=== PATIENT | female | born 1975 ===

== ENCOUNTER 2022-03-23 02:20 | Emergency (ER) | payer BC ==
--- OUTSIDE RECORDS SUMMARY | 2022-03-23 02:23 | XMS REPORT | Continuity of Care Document ---
:1975 Author Organization [facility] t Address Pending sale to [facility] [place] [address] Care Team Providers Name Role Phone Unknown, Physician Primary Care Physician Unavailable BURT HERNANDEZ Attending Clinician Unavailable BURT HERNANDEZ M.D. Attending Clinician Unavailable Payers Payer Name Policy Type Policy Number Effective Date Expiration Date S delfin [id number] PPO AND [id number] 2013 00:00:00 OUT OF STATE Problems Condition Condition Condition Status Onset Resolution Last Treating Co mments Source Name Details Category Date Date Treatment Clinician Date Chronic Chronic Disease Active [facility] fatigue fatigue 6-02 Health 00:00: 00 Iron Iron Disease Active [facility] deficiency deficiency 6-02 He alth anemia anemia 00:00: 00 Postoperat Postoperat Disease Active U T alaina alaina 6-02 Health hypothyroi hypothyroi 00:00: dism dism 00 Vitamin D Vitamin D Disease Active UT deficiency deficiency 6-02 He alth 00:00: 00 Abnormal Abnormal Disease Active UT thyroid thyroid 3-27 Health function function 00:00: test test 00 History of History of Problem Resolve UT thyroid thyroid d Physici disease disease ans Abnormal Abnormal Problem Active UT thyroid thyroid Physici function function ans test test Chronic Chronic Problem Active UT fatigue fatigue Physici ans Iron Iron Problem Active UT deficiency deficiency Ph ysici anemia anemia ans Postoperat Postoperat Problem Active U T alaina alaina Physici hypothyroi hypothyroi an s dism dism Vitamin D Vitamin D Problem Active UT deficiency deficiency Ph ysici ans Allergies, Adverse Reactions, Alerts Allergy Allergy Status Severity Reaction(s) Onset Inactive Treating Comm ents Source Name Type Date Date Clinician Cephalex Allergy Active [facility] in to 1-28 Health substanc 00:00: e 00 Keflex Allergy Active [facility] to drug Physici (finding ans ) Family History Family Member Diagnosis Comments Start Date Stop Date Source Mother Family history of [facility] hypertension Social History Social Habit Start Date Stop Date Quantity Comments Source Exposure to Not sure [facility] SARS-CoV-2 (event) History SDOH [facility] Alcohol Frequency History SDOH [facility] Alcohol Binge Tobacco use and 2021-08-05 2021-08-05 Smokeless tobacco [facility] exposure 00:00:00 00:00:00 non-user Alcohol intake 2021-08-05 2021-08-05 Current drinker of [facility] 00:00:00 00:00:00 alcohol (finding) Alcohol Comment 2021-08-05 2021-08-05 social [facility] 00:00:00 00:00:00 Sex Assigned At [birth year] [facility] 00:00:00 00:00:00 Smoking Status Start Date Stop Date Source Tobacco smoking consumption unknown [facility] Never smoked tobacco [facility] Medications Ordered Filled Start Stop Current Ordering Indication Dosage Frequency Signature Comments Components Source Medication Medication Date Date Medication? Clinician (SIG) Name Name hydroCHLORO [facility] thiazide 08-05 Health (HYDRODiuri 09:59: 00:00 l) 12.5 MG 40 :00 tablet norethindro [facility] ne-ethinyl 08-05 Health estradiol 09:59: 00:00 ( 37 :00 07/24) 1-20 MG-MCG tablet estradiol Yes 1{patch Place 1 UT (Vivelle-DO 08-05 } patch on Heal th T) 0.05 09:46: the skin 1 MG/24HR 25 (one) time per week. Synthroid 2022- No [id number] 125ug Q2D Take 1 UT 125 MCG 08-05 tablet Health tablet 00:00: 05:59 (125 mcg 00 :00 total) by mouth every other day. EVERY OTHER MORNING to be alternated with Synthroid 137 mcg. Synthroid 2022- No [id number] 137ug Q2D Take 137 UT 137 MCG 08-05 mcg by Health tablet 00:00: 05:59 mouth 00 :00 every other day. EVERY OTHER MORNING to be alternated with Synthroid 125 mcg. hydroCHLORO Yes UT thiazide 08-01 Health (HYDRODiuri 09:06: l) 12.5 MG 43 tablet norethindro Yes UT ne-ethinyl 08-01 Health estradiol 09:06: (Gildess FE 43 07/24) 1-20 MG-MCG tablet Synthroid 2020-07 Yes [id number] 125ug Q2D Take 1 U T 125 MCG 1-12 tablet Health tablet 00:00: (125 mcg 00 total) by mouth every other day. EVERY OTHER MORNING Synthroid 2020-07 Yes [id number] 125ug Q2D Take 1 U T 125 MCG 1-12 tablet Health tablet 00:00: (125 mcg 00 total) by mouth every other day. EVERY OTHER MORNING Synthroid 2020-07 Yes [id number] 125ug Q2D Take 1 U T 125 MCG 1-12 tablet Health tablet 00:00: (125 mcg 00 total) by mouth every other day. EVERY OTHER MORNING Synthroid 2020-07- No [id number] 125ug Q2D Take 1 UT 125 MCG 12 08-05 tablet Health tablet 00:00: 00:00 (125 mcg 00 :00 total) by mouth every other day. EVERY OTHER MORNING zolpidem 2020-07 Yes UT (Ambien) 10 1-02 Health MG tablet 00:00: 00 zolpidem 2020-07 Yes UT (Ambien) 10 1-02 Health MG tablet 00:00: 00 Synthroid 2020- No [id number] TAKE 1 U T 125 MCG 02-10-12 TABLET BY Health tablet 00:00: 00:00 MOUTH 00 :00 EVERY OTHER MORNING Synthroid Synthroid Yes BURT TAKE 1 UT 137 MCG 137 MCG 4-07 [facility] TABLET BY P hysici Oral Tablet Oral Tablet 00:00: M.D. MOUTH 5 ans 00 DAYS A WEEK Synthroid Synthroid 2015-07 Yes BURT TAKE ONE UT 125 MCG 125 MCG 0-11 [facility] (1) Physic i Oral Tablet Oral Tablet 00:00: M.D. TABLET(S) ans 00 BY MOUTH every other DAY IN THE MORNING. hydroCHLORO hydroCHLORO Yes P.A. U T thiazide thiazide Physici 12.5 MG 12.5 MG ans Oral Tablet Oral Tablet Gildes FE Giljadas FE Yes P.A. UT 07/24 Physi ci MG-MCG TABS MG-MCG TABS a ns Vital Signs Vital Name Observation Time Observation Value Comments Source Systolic blood 2021-08-05 15:46:00 138 mm[Hg] [facility] pressure Diastolic blood 2021-08-05 15:46:00 86 mm[Hg] [facility] pressure Heart rate 2021-08-05 15:46:00 67 /min [facility] Body temperature 2021-08-05 15:46:00 36.5 Robyn [facility] Body weight 2021-08-05 15:46:00 70.58 kg [facility] BMI 2021-08-05 15:46:00 25.89 kg/m2 [facility] BP Systolic 2018-08-09 15:01:00 139 mm[Hg] Location: LUE; [facility] Position: Sitting BP Diastolic 2018-08-09 15:01:00 89 mm[Hg] Location: MAGOE; [facility] Position: Sitting Height 2018-08-09 15:01:00 65 [in_us] [facility] Weight 2018-08-09 15:01:00 151.25 [lb_av] [facility] Body Mass Index 2018-08-09 15:01:00 25.17 kg/m2 [facility] Calculated Temperature 2018-08-09 15:01:00 98 [degF] Method: Oral [facility] Heart Rate 2018-08-09 15:01:00 77 /min Location: L [facility] Brachial Artery; BP Systolic 2017-11-03 16:05:00 135 mm[Hg] Location: MAGOE; [facility] Position: Sitting BP Diastolic 2017-11-03 16:05:00 82 mm[Hg] Location: LUE; [facility] Position: Sitting Height 2017-11-03 16:05:00 65 [in_us] [facility] Weight 2017-11-03 16:05:00 139.375 [lb_av] [facility] Body Mass Index 2017-11-03 16:05:00 23.19 kg/m2 [facility] Calculated Temperature 2017-11-03 16:05:00 98 [degF] Method: Oral [facility] Heart Rate 2017-11-03 16:05:00 67 /min Location: L [facility] Brachial Artery; Procedures Procedure Date / Time Performed Performing Clinician Sour e [Q] IRON, TIBC AND FERRITIN 2018-08-09 00:00:00 [facility] PANEL [QLH] CBC (INCLUDES 2018-08-09 00:00:00 [facility] DIFF/PLT) [QLH] T3, TOTAL 2018-08-09 00:00:00 [facility] s [QLH] T4, FREE 2018-08-09 00:00:00 [facility] s [QLH] TSH, 3RD GENERATION 2018-08-09 00:00:00 [facility] [QLH] VITAMIN D, 25-HYDROXY, 2018-08-09 00:00:00 [facility] LC/MS/MS [QLH] T3, TOTAL 2018-02-23 00:00:00 [facility] s [QLH] T4, FREE 2018-02-23 00:00:00 [facility] s [QLH] TSH, 3RD GENERATION 2018-02-23 00:00:00 [facility] [Q] IRON, TIBC AND FERRITIN 2018-02-23 00:00:00 [facility] PANEL [QLH] CBC (INCLUDES 2018-02-23 00:00:00 [facility] DIFF/PLT) [Q] IRON, TIBC AND FERRITIN 2017-11-03 00:00:00 [facility] PANEL History of Hysterectomy [facility] History of Thyroid Surgery [facility] History of Appendectomy [facility] History of Cholecystotomy [facility] History of Ovarian Surgery [facility] History of Tonsillectomy [facility] History of Breast Surgery [facility] Reduction Procedure Elective History of Liposuction [facility] History of Breast Surgery [facility] Enlargement Procedure Plan of Care Planned Activity Planned Date Details Comments Source Diagnostic Test 2019-02-06 00:00:00 [Q] IRON, TIBC AND [facility] Pending FERRITIN PANEL [code = [Q] IRON, TIBC AND FERRITIN PANEL] Diagnostic Test 2019-02-06 00:00:00 [QLH] CBC (INCLUDES [facility] Pending DIFF/PLT) [code = [QLH] CBC (INCLUDES DIFF/PLT)] Diagnostic Test 2019-02-06 00:00:00 [QLH] T3, TOTAL [code [facility] Pending = [QLH] T3, TOTAL] Diagnostic Test 2019-02-06 00:00:00 [QLH] T4, FREE [code [facility] Pending = [QLH] T4, FREE] Diagnostic Test 2019-02-06 00:00:00 [QLH] TSH, 3RD [facility] Pending GENERATION [code = [QLH] TSH, 3RD GENERATION] Diagnostic Test 2019-02-06 00:00:00 [QLH] VITAMIN D, U [facility] Pending 25-HYDROXY, LC/MS/MS [code = [QLH] VITAMIN D, 25-HYDROXY, LC/MS/MS] Diagnostic Test 2019-02-06 00:00:00 [Q] IRON, TIBC AND [facility] Pending FERRITIN PANEL [code = [Q] IRON, TIBC AND FERRITIN PANEL] Diagnostic Test 2019-02-06 00:00:00 [QLH] CBC (INCLUDES [facility] Pending DIFF/PLT) [code = [QLH] CBC (INCLUDES DIFF/PLT)] Diagnostic Test 2019-02-06 00:00:00 [QLH] T3, TOTAL [code [facility] Pending = [QLH] T3, TOTAL] Diagnostic Test 2019-02-06 00:00:00 [QLH] T4, FREE [code [facility] Pending = [QLH] T4, FREE] Diagnostic Test 2019-02-06 00:00:00 [QLH] TSH, 3RD [facility] Pending GENERATION [code = [QLH] TSH, 3RD GENERATION] Diagnostic Test 2019-02-06 00:00:00 [QLH] VITAMIN D, U [facility] Pending 25-HYDROXY, LC/MS/MS [code = [QLH] VITAMIN D, 25-HYDROXY, LC/MS/MS] Diagnostic Test 2018-05-09 00:00:00 [QLH] T3, TOTAL [code [facility] Pending = [QLH] T3, TOTAL] Diagnostic Test 2018-05-09 00:00:00 [QLH] T4, FREE [code [facility] Pending = [QLH] T4, FREE] Diagnostic Test 2018-05-09 00:00:00 [QLH] TSH, 3RD [facility] Pending GENERATION [code = [QLH] TSH, 3RD GENERATION] Diagnostic Test 2018-05-09 00:00:00 [Q] IRON, TIBC AND [facility] Pending FERRITIN PANEL [code = [Q] IRON, TIBC AND FERRITIN PANEL] Diagnostic Test 2018-05-09 00:00:00 [QLH] CBC (INCLUDES [facility] Pending DIFF/PLT) [code = [QLH] CBC (INCLUDES DIFF/PLT)] Diagnostic Test 2018-05-09 00:00:00 [QLH] T3, TOTAL [code [facility] Pending = [QLH] T3, TOTAL] Diagnostic Test 2018-05-09 00:00:00 [QLH] T4, FREE [code [facility] Pending = [QLH] T4, FREE] Diagnostic Test 2018-05-09 00:00:00 [QLH] TSH, 3RD [facility] Pending GENERATION [code = [QLH] TSH, 3RD GENERATION] Diagnostic Test 2018-05-09 00:00:00 [Q] IRON, TIBC AND [facility] Pending FERRITIN PANEL [code = [Q] IRON, TIBC AND FERRITIN PANEL] Diagnostic Test 2018-05-09 00:00:00 [QLH] CBC (INCLUDES [facility] Pending DIFF/PLT) [code = [QLH] CBC (INCLUDES DIFF/PLT)] Encounters Start End Encounter Admission Attending Care Care Encounter Source Date/Time Date/Time Type Type Clinicians Facility Department ID 2021-12-22 Outpatient [facility] [id number] [place] 14:32:[id number] [facility] 2021-12-09 Outpatient [facility] [id number] [place] 08:33:[id number] [facility] 2021-08-05 [facility] [id number] [place] 10:15:28 [facility] 2021-08-05 2021-08-05 Office JOSIE Hernandez [id number] [place] 10:00:00 10:16:08 Visit Burt YEHUDA [id number] [facility] [id number] MULTI [id number] SPECIALTY 2 2021-08-01 2021-08-01 Abstract JOSIE Hernandez [id number] [place] 00:00:00 00:00:00 Burttyrone BLACKMAN [id number] [facility] [id number] MULTI [id number] SPECIALTY 2 2021-05-202021-05-20 Orders Josegregg, [facility] [id number] [place] 00:00:00 00:00:00 Only Burt BLACKMAN [id number] Manpreet alth [facility] [id number] MULTI [id number] SPECIALTY 2 2021-05-16 2021-05-16 Telephone [place] [facility] [id number] [place] 00:00:00 00:00:00 Burt BLACKMAN [id number] Manpreet alth [facility] [id number] MULTI [id number] SPECIALTY 2 2019-12-05 2019-12-05 Nuria HERNANDEZ [facility] [id number] [place] 15:00:00 15:00:00 t; Ness DALLAS i, M.D. ans AUBREY, M.D. 2018-08-09 2018-08-09 Nuria HERNANDEZ [facility] Yehuda [id number] [place] 15:40:00 15:40:00 [facility] 2017-11-03 2017-11-03 Nuria HERNANDEZ [facility] Yehuda [id number] [place] 15:40:00 15:40:00 [facility] 2017-06-21 2017-06-21 Nuria HERNANDEZ [facility] UTP [id number] [place] 09:50:00 09:50:00 t; Ness DALLAS i, M.D. ans AUBREY, M.D. 2017-06-21 2017-06-21 Nuria HERNANDEZ [facility] [id number] [place] 09:40:00 09:40:00 t; Ness DALLAS i, M.D. ans AUBREY, M.D. 2017-06-21 2017-06-21 Nuria HERNANDEZ [facility] [id number] [place] 09:40:00 09:40:00 t; Ness DALLAS i, M.D. ans AUBREY, M.D. 2017-03-22 2017-03-22 Reganevelina [facility] [id number] [place] 10:20:00 10:20:00 t; Ness DALLAS i, M.D. ans AUBREY, M.D. 2017-03-16 2017-03-16 [facility] [id number] [place] 08:30:00 08:30:00 t; Ness DALLAS i, M.D. ans AUBREY, M.D. 2017-03-16 2017-03-16 [facility] [id number] [place] 08:00:00 08:00:00 t; Ness DALLAS i, M.D. ans AUBREY, M.D. 2016-09-23 2016-09-23 [facility] [id number] [place] 15:30:00 15:30:00 t; Ness DALLAS i, M.D. ans AUBREY, M.D. 2016-04-14 2016-04-14 [facility] [id number] [place] 08:30:00 08:30:00 t; Ness DALLAS i, M.D. ans AUBREY, M.D. 2016-01-21 2016-01-21 [facility] UTP [id number] [place] 09:00:00 09:00:00 t; Ness DALLAS i, M.D. ans AUBREY, M.D. Results Test Description Test Time Test Comments Results Result Comments Source [Q] IRON, TIBC AND FERRITIN PANEL 2019-12-13 15:09:00 Test Item Value Reference Range Interpretation Comme nts IRON, TOTAL (test code = IRON, TOTAL) 116 {mcg/dl} 40-190 N IRON BINDING CAPACITY (test code = IRON BINDING CAPACITY) 42 8 {mcg/dL ca} 250-450 N % SATURATION (test code = % SATURATION) 27 {% CALC} 16-45 N FERRITIN (test code = FERRITIN) 25 ng/ml 16-232 N [facility][QL] CBC (INCLUDES DIFF/PLT)2019-12-13 15:09:00 Test Item Value Reference Range Interpretation Comments WHITE BLOOD CELL COUNT 5.7 {Thousand/u} 3.8-10.8 N (test code = WHITE BLOOD CELL COUNT) RED BLOOD CELL COUNT (test 4.40 {Million/uL} 3.80-5.10 N code = RED BLOOD CELL COUNT) HEMOGLOBIN; Normal (test 12.6 g/dl 11.7-15.5 N code = 34657-0) HEMATOCRIT; Normal (test 38.4 % 35.0-45.0 N code = 4544-3) MCV; Normal (test code = 87.3 fL 80.0-100.0 N 787-2) MCHC; Normal (test code = 32.8 g/dl 32.0-36.0 N 83008-5) RDW; Normal (test code = 11.8 % 11.0-15.0 N 788-0) PLATELET COUNT; Normal 261 {Thousand/u} 140-400 N (test code = 777-3) MPV; Normal (test code = 9.8 fL 7.5-12.5 N 90273-6) ABSOLUTE NEUTROPHILS (test 2725 {cells/uL} 7992-8228 N code = ABSOLUTE NEUTROPHILS) ABSOLUTE LYMPHOCYTES (test 2388 {cells/uL} 850-3900 N code = ABSOLUTE LYMPHOCYTES) ABSOLUTE MONOCYTES (test 450 {cells/uL} 200-950 N code = ABSOLUTE MONOCYTES) ABSOLUTE EOSINOPHILS (test 108 {cells/uL} 15-500 N code = ABSOLUTE EOSINOPHILS) ABSOLUTE BASOPHILS (test 29 {cells/uL} 0-200 N code = ABSOLUTE BASOPHILS) NEUTROPHILS (test code = 47.8 % N NEUTROPHILS) LYMPHOCYTES (test code = 41.9 % N LYMPHOCYTES) MONOCYTES; Normal (test 7.9 % N code = 55822-5) EOSINOPHILS; Normal (test 1.9 % N code = 86414-5) BASOPHILS; Normal (test 0.5 % N code = 36774-0) [facility][QL] T3, [id number] 15:09:00 Test Item Value Reference Range Interpretation Comments T3, TOTAL (test code = T3, TOTAL) 86 ng/dl 76-181 N [facility][QL] T4, [id number] 15:09:00 Test Item Value Reference Range Interpretation Comments T4, FREE (test code = T4, FREE) 1.6 ng/dl 0.8-1.8 N [facility][QL] TSH, 3RD [id number] 15:09:00 Test Item Value Reference Range Interpretation Comments TSH; Below Low 0.15 {MIU/L} Reference Ran ge > or Threshold (test code = 20 Ye ars 0.40-4.50 = 45351-3) Range s First trimester 0.26-2.66 Secon d trimester 0.55- 2.73 Third trimester 0.43-2.91 [facility][QL] VITAMIN D, 25-HYDROXY, LC/MS/[id number] 15:09:00 Test Item Value Reference Range Interpretation Comments VITAMIN 31 ng/ml 30-100 N Vitamin D Statu s 25-OH D,25-OH,TOTAL,IA Vitamin D: Deficiency: (test code = VITAMIN <20 ng/ mLInsufficiency: D,25-OH,TOTAL,IA) 20 - 29 ng /mLOptimal: > or = 30 ng/mL F or 25-OH Vitamin D testi ng on patients on D2-supplementat ion and patients for wh om quantitation of D2 and D3 fractions is required, the QuestAssureD(TM )25-OH VIT D, (D2,D3), LC/MS/MS is recommended: order code 66955 (pat ients >2yrs).See Note 1 Note 1 For additional information, pl ease refer to http://educatio n.[employer]/f aq/LHD159 (This link is b eing provided for informational/e ducationa l purposes only .) [facility][Q] IRON, TIBC AND FERRITIN [id number] 15:37:00 Test Item Value Reference Range Interpretation Comments IRON, TOTAL (test code = 27 {mcg/dl} 40-190 IRON, TOTAL) IRON BINDING CAPACITY (test 488 {mcg/dL ca} 250-450 code = IRON BINDING CAPACITY) % SATURATION (test code = % 6 {% CALC} 16-45 SATURATION) FERRITIN (test code = 11 ng/ml 16-232 FERRITIN) [facility][QLH] CBC (INCLUDES DIFF/PLT)2019-02-16 15:37:00 Test Item Value Reference Range Interpretation Comments WHITE BLOOD CELL COUNT 4.7 {Thousand/u} 3.8-10.8 N (test code = WHITE BLOOD CELL COUNT) RED BLOOD CELL COUNT (test 4.04 {Million/uL} 3.80-5.10 N code = RED BLOOD CELL COUNT) HEMAGLOBIN; Below Low 10.3 g/dl 11.7-15.5 Threshold (test code = 95480-9) HEMATOCRIT; Below Low 32.2 % 35.0-45.0 Threshold (test code = 4544-3) MCV; Below Low Threshold 79.7 fL 80.0-100.0 (test code = 787-2) MCHC; Normal (test code = 32.0 g/dl 32.0-36.0 N 31989-4) RDW; Normal (test code = 13.7 % 11.0-15.0 N 788-0) PLATELET COUNT; Normal 329 {Thousand/u} 140-400 N (test code = 777-3) MPV; Normal (test code = 9.7 fL 7.5-12.5 N 46636-6) ABSOLUTE NEUTROPHILS (test 2115 {cells/uL} 6901-2701 N code = ABSOLUTE NEUTROPHILS) ABSOLUTE LYMPHOCYTES (test 1913 {cells/uL} 850-3900 N code = ABSOLUTE LYMPHOCYTES) ABSOLUTE MONOCYTES (test 573 {cells/uL} 200-950 N code = ABSOLUTE MONOCYTES) ABSOLUTE EOSINOPHILS (test 71 {cells/uL} 15-500 N code = ABSOLUTE EOSINOPHILS) ABSOLUTE BASOPHILS (test 28 {cells/uL} 0-200 N code = ABSOLUTE BASOPHILS) NEUTROPHILS (test code = 45 % N NEUTROPHILS) LYMPHOCYTES (test code = 40.7 % N LYMPHOCYTES) MONOCYTES; Normal (test 12.2 % N code = 00295-2) EOSINOPHILS; Normal (test 1.5 % N code = 26837-5) BASOPHILS; Normal (test 0.6 % N code = 99816-7) [facility]] T3, [id number] 15:37:00 Test Item Value Reference Range Interpretation Comments T3, TOTAL (test code = T3, TOTAL) 106 ng/dl 76-181 N [facility]] T4, [id number] 15:37:00 Test Item Value Reference Range Interpretation Comments T4, FREE (test code = T4, FREE) 1.8 ng/dl 0.8-1.8 N [facility]] TSH, 3RD [id number] 15:37:00 Test Item Value Reference Range Interpretation Comments TSH; Below Low 0.08 {MIU/L} Reference Ran ge > or Threshold (test code = 20 Ye ars 0.40-4.50 = 88300-1) Range s First trimester 0.26-2.66 Secon d trimester 0.55- 2.73 Third trimester 0.43-2.91 [facility][QLH] VITAMIN D, 25-HYDROXY, LC/[id number] 15:37:00 Test Item Value Reference Range Interpretation Comments VITAMIN 45 ng/ml 30-100 N Vitamin D Statu s 25-OH D,25-OH,TOTAL,IA Vitamin D: Deficiency: (test code = VITAMIN <20 ng/ mLInsufficiency: D,25-OH,TOTAL,IA) 20 - 29 ng /mLOptimal: > or = 30 ng/mL F or 25-OH Vitamin D testi ng on patients on D2-supplementat ion and patients for wh om quantitation of D2 and D3 fractions is required, the QuestAssureD(TM )25-OH VIT D, (D2,D3), LC/MS/MS is recommended: order code 16113 (pat ients >2yrs). For mor e information on this test, go to:http://educa tion.[employer] tdiagnostics.co m/faq/FAQ 163(This link i s being provided for informational/e ducationa l purposes only .) [facility][Q] IRON, TIBC AND FERRITIN [id number] 14:47:00 Test Item Value Reference Range Interpretation Comments IRON, TOTAL (test code = 79 {mcg/dl} 40-190 N IRON, TOTAL) IRON BINDING CAPACITY (test 534 {mcg/dL ca} 250-450 code = IRON BINDING CAPACITY) % SATURATION (test code = % 15 {% CALC} 11-50 N SATURATION) FERRITIN (test code = 6 ng/ml 10-232 FERRITIN) [facility][QLH] CBC (INCLUDES DIFF/PLT)2018-05-02 14:47:00 Test Item Value Reference Range Interpretation Comments WHITE BLOOD CELL COUNT 7.2 {Thousand/u} 3.8-10.8 N (test code = WHITE BLOOD CELL COUNT) RED BLOOD CELL COUNT (test 4.21 {Million/uL} 3.80-5.10 N code = RED BLOOD CELL COUNT) HEMAGLOBIN; Below Low 11.6 g/dl 11.7-15.5 Threshold (test code = 76325-8) HEMATOCRIT; Normal (test 35.1 % 35.0-45.0 N code = 4544-3) MCV; Normal (test code = 83.4 fL 80.0-100.0 N 787-2) MCHC; Normal (test code = 33.0 g/dl 32.0-36.0 N 60063-3) RDW; Normal (test code = 12.9 % 11.0-15.0 N 788-0) PLATELET COUNT; Normal 308 {Thousand/u} 140-400 N (test code = 777-3) MPV; Normal (test code = 9.8 fL 7.5-12.5 N 39634-9) ABSOLUTE NEUTROPHILS (test 4680 {cells/uL} 1339-5130 N code = ABSOLUTE NEUTROPHILS) ABSOLUTE LYMPHOCYTES (test 2030 {cells/uL} 850-3900 N code = ABSOLUTE LYMPHOCYTES) ABSOLUTE MONOCYTES (test 418 {cells/uL} 200-950 N code = ABSOLUTE MONOCYTES) ABSOLUTE EOSINOPHILS (test 43 {cells/uL} 15-500 N code = ABSOLUTE EOSINOPHILS) ABSOLUTE BASOPHILS (test 29 {cells/uL} 0-200 N code = ABSOLUTE BASOPHILS) NEUTROPHILS (test code = 65 % N NEUTROPHILS) LYMPHOCYTES (test code = 28.2 % N LYMPHOCYTES) MONOCYTES; Normal (test 5.8 % N code = 64590-0) EOSINOPHILS; Normal (test 0.6 % N code = 08810-9) BASOPHILS; Normal (test 0.4 % N code = 85053-1) [facility]] T3, [id number] 14:47:00 Test Item Value Reference Range Interpretation Comments T3, TOTAL (test code = T3, TOTAL) 88 ng/dl 76-181 N [facility]] T4, [id number] 14:47:00 Test Item Value Reference Range Interpretation Comments T4, FREE (test code = T4, FREE) 1.2 ng/dl 0.8-1.8 N [facility]] TSH, 3RD [id number] 14:47:00 Test Item Value Reference Range Interpretation Comments TSH; Normal (test 1.07 {MIU/L} N Reference Range > or = code = 65173-8) 20 Years 0.4 0-4.50 Range s First trimester 0.26-2.66 Secon d trimester 0.55- 2.73 Third trimester 0.43-2.91 [facility]] CBC (INCLUDES DIFF/PLT)2017-11-03 16:28:01 Test Item Value Reference Range Interpretation Comments WBC (test code = 6690-2) 7.0 {K/CMM} 3.7-10.4 RBC; Below Low Threshold (test 4.19 {M/CMM} 4.20-5.40 code = 789-8) Hgb; Below Low Threshold (test 11.6 g/dl 12.0-16.0 code = 718-7) Hct; Below Low Threshold (test 35.6 % 36.0-48.0 code = 78176-9) MCV (test code = 787-2) 84.9 fL 80.0-98.0 MCH (test code = 785-6) 27.7 pg 27.0-31.0 MCHC (test code = 786-4) 32.6 g/dl 32.0-36.0 RDW; Above High Threshold (test 14.6 % 11.5-14.5 code = 788-0) Platelet (test code = 55000-1) 351 {K/CMM} 133-450 Mean Platelet Volume (test code 8.2 fL 7.4-10.4 = 67715-2) [facility]] [id number] 16:28:01 Test Item Value Reference Range Interpretation Comments Segmented Neutrophils (test code 65.6 % 45.0-75.0 = 30126-8) Monocytes (test code = 76855-4) 6.4 % 2.0-12.0 Lymphocytes (test code = 14764-1) 27.3 % 20.0-40.0 Eosinophils (test code = 97837-1) 0.4 % 0.0-4.0 Basophils (test code = 706-2) 0.3 % 0.0-1.0 Segs-Bands # (test code = 4.6 {K/CMM} 1.5-8.1 57267-6) Lymphocytes # (test code = 1.9 {K/CMM} 1.0-5.5 15248-5) Monocytes # (test code = 44574-7) 0.5 {K/CMM} 0.0-0.8 [facility]] T3, [id number] 16:28:01 Test Item Value Reference Range Interpretation Comments T3 Total (test code = 3053-6) 0.95 ng/ml 0.60-1.81 [facility]] CMP [id number] 16:28:01 Test Item Value Reference Range Interpretation Comments Sodium Level 142 {mEq/l} 135-145 (test code = 2951-2) Potassium Level 4.2 {mEq/l} 3.5-5.1 (test code = 2823-3) Chloride Level 108 {mEq/l} 95-109 (test code = 5-0) Carbon Dioxide 26 {mEq/l} 24-32 (test code = 2027-9) AGAP (test code = 12.2 {mEq/l} 10.0-20.0 45393-5) Glucose Lvl (test 75 mg/dl 70-99 Adult refe rence range code = 2345-7) values reflec t the clinical guidel inesof the [place] Di[employer]et es Association. Creatinine Lvl 1.10 mg/dl 0.50-1.40 (test code = 2160-0) Blood Urea 12 mg/dl 7-22 Nitrogen (test code = 3094-0) BUN/Creatinine 11 6-25 Ratio (test code = 3097-3) Total Protein 7.0 g/dl 6.4-8.4 (test code = 2885-2) Albumin Lvl; 3.3 g/dl 3.5-5.0 Below Low Threshold (test code = 1751-7) Globulin (test 3.7 g/dl 2.7-4.2 code = 64103-7) A/G Ratio (test 0.9 0.7-1.6 code = 1759-0) Calcium Level 8.5 mg/dl 8.5-10.5 Total (test code = 42569-3) ALT (test code = 22 u/l 0-65 1743-4) AST (test code = 20 u/l 0-37 96827-3) Alk Phos; Below 35 u/l 39-136 Low Threshold (test code = 1783-0) Bili Total (test 0.3 mg/dl 0.2-1.3 code = 1974-2) eGFR (test code = 62 The eGFR i s calculated 87413-3) {ML/MIN/1.7} using the CKD-E PI formula. In mos t young, healthyindividu als the eGFR will be >9 0 mL/min/1.73m2. The eGFR declines with a ge. AneGFR of 60-89 may be normal in some population s, particularly th e elderly, forwhom the CKD -EPI formula has not been extensively willie idated. Use of the eGFR isnot recommended in the following populations:Ind ividuals with unstable c reatinine concentrations, including patient s and those with seri ous co-morbid conditions.Keyonna ents with extremes in mus poli mass or diet.The antolin a above are obtained fr om the National Kidney Disease Education Progr am(NKDEP) which aamir morrow recommends that when the eGFR is used in patientswith ex tremes of body mass index for purposes of elias g dosing, the eGFR should be multiplied by t he estimated BMI. [facility][QL] T4, [id number] 16:28:01 Test Item Value Reference Range Interpretation Comments T4 Free (test code = 3024-7) 1.30 ng/dl 0.76-1.46 [facility][QLH] TSH, 3RD [id number] 16:28:01 Test Item Value Reference Range Interpretation Comments TSH (test code = 29609-3) 1.410 {uIU/ml} 0.360-3.740 [facility][QLH] VITAMIN [id number] 16:28:01 Test Item Value Reference Range Interpretation Comments Vitamin B12 Level (test code = 647 pg/ml 254-1320 2132-9) [facility][H] Iron, TIBC \T\ [id number] 16:28:01 Test Item Value Reference Range Interpretation Comments Iron (test code = 2498-4) 48 ug/dL 30-160 % [place]; Below Low Threshold 9 % 12-57 (test code = 2502-3) TIBC; Above High Threshold (test 557 ug/dL 228-428 code = 2500-7) UIBC (test code = UIBC) 509 ug/dL 110-370 Ferritin Lvl; Below Low Threshold 4 ng/ml 5-204 (test code = 2276-4) [facility]] VITAMIN D, 25-HYDROXY, [id number] 16:28:01 Test Item Value Reference Range Interpretation Comments Vitamin D, 25-OH, 42.1 ng/ml 30.0-100.0 Reference range is based Total (test code on recommen dations in the = Vitamin D, EndocrineSociet y Clinical 25-OH, Total) Practice Guide line (J Clin Endocrinol Yhaxu3064;96:19 11-1930) [facility]] T3, [id number] 10:52:00 Test Item Value Reference Range Interpretation Comments T3, TOTAL (test code = T3, TOTAL) 107 ng/dl 76-181 N [facility]] T4, [id number] 10:52:00 Test Item Value Reference Range Interpretation Comments T4, FREE (test code = T4, FREE) 1.5 ng/dl 0.8-1.8 N [facility]] TSH, 3RD [id number] 10:52:00 Test Item Value Reference Range Interpretation Comments TSH; Normal (test 1.48 {MIU/L} N Reference Range > or = code = 53509-2) 20 Years 0.4 0-4.50 Range s First trimester 0.26- 2.66 Second trimeste r 0.55-2.73 Third trimester 0.43- 2.91 [facility]
[2022-03-23] MEDS ORDERED: NA CHLORIDE 0.9% 1,000 ML ONE ×2 (03:33→03:38)
[2022-03-23] MEDS ORDERED: KETOROLAC 30 MG/ML INJ ONE ×2 (03:33→03:38)
[2022-03-23] MEDS ORDERED: TAMSULOSIN 0.4 MG SR CAP ONE (03:33)
[2022-03-23] MEDS ORDERED: HYDROMORPHONE HCL 1 MG/ML INJ ONE ×2 (03:33→03:38)
[2022-03-23] MEDS ORDERED: ONDANSETRON 4 MG/2 ML VIAL ONE ×2 (03:33→03:38)
[2022-03-23 03:38] LABS: Hematocrit 36.3 % (36.0-45.0); Lymphocytes % 26.5 % (15.3-44.8); MCV 86.5 fL (80-100); MPV 7.2 fL (7.6-11.3)
[2022-03-23] MEDS ORDERED: Levofloxacin500mg IV 500 MG/100 ML BAG IV ONE (03:40)
[2022-03-23 03:50] LABS: Urine Blood Trace-intact (Negative); Urine Glucose Negative (Negative); Urine Protein Negative (Negative); Urine pH 7.5 (5.0-7.0)
[2022-03-23 03:50] LABS: Albumin 3.8 g/dL (3.4-5.0); Bilirubin Total 0.2 mg/dL (0.2-1.0); Potassium 3.5 mmol/L (3.5-5.1); Protein, Total 7.5 g/dL (6.4-8.2)
--- NOTE | 2022-03-23 05:15 | ER ---
Nurse's Notes [facility] Name: Cony Michael Age: 46 yrs Sex: Female : 1975 Arrival Date: 03/23/2022 Time: 02:22 Bed 5 Private MD: Diagnosis: Hydronephrosis with renal and ureteral calculous obstruction-4x2x4 mm;UTI/ Urinary tract infection, site not specified Presentation: 03/23 02:50 Chief complaint: Patient states: lower left back pain radiating to groin since 10 am kl yesterday emesis began at midnight. Coronavirus screen: Vaccine status: Patient reports being unvaccinated. Ebola Screen: Patient negative for fever greater than or equal to 101.5 degrees Fahrenheit, and additional compatible Ebola Virus Disease symptoms. Initial Sepsis Screen: Does the patient meet any 2 criteria? No. Patient's initial sepsis screen is negative. Does the patient have a suspected source of infection? No. Patient's initial sepsis screen is negative. Risk Assessment: Do you want to hurt yourself or someone else? Patient reports no desire to harm self or others. 02:50 Method Of Arrival: Ambulatory 02:50 Acuity: KIMBERLY 3 kl Triage Assessment: 02:54 General: Appears distressed, uncomfortable, well groomed, well developed, Behavior is kl cooperative, anxious. Pain: Complains of pain in left low back Pain radiates to groin and left femoral area Pain currently is 10 out of 10 on a pain scale. EENT: No deficits noted. Neuro: No deficits noted. Cardiovascular: No deficits noted. Respiratory: No deficits noted. GI: Pt is actively vomiting bile. : Reports burning with urination, urgency, urinary frequency. [employer]: 03:35 LMP N/A - Hysterectomy ll3 Historical: - Allergies: 02:52 Keflex; kl - Home Meds: 02:52 Synthroid Oral [Active]; kl - PSHx: 02:52 Cholecystectomy; Appendectomy; hysterectomy; Thyroidectomy; kl - Immunization history:: Adult Immunizations not up to date. - Social history:: Smoking status: Patient denies any tobacco usage or history of. - Family history:: not pertinent. Screenin:41 Abuse screen: Denies threats or abuse. Denies injuries from another. Nutritional ll3 screening: No deficits noted. Tuberculosis screening: No symptoms or risk factors identified. Fall Risk None identified. Assessment: 03:00 General: Appears in no apparent distress. uncomfortable, Behavior is calm, cooperative. ll3 Pain: Complains of pain in pelvis and groin and back Pain currently is 10 out of 10 on a pain scale. Neuro: Level of Consciousness is awake, alert, obeys commands, Oriented to person, place, time, situation. Respiratory: Respiratory effort is even, unlabored, Respiratory pattern is regular, symmetrical. GI: Reports nausea, vomiting. Derm: Skin is pink, warm \T\ dry. 04:02 Reassessment: Patient appears in no apparent distress at this time. No changes from ll3 previously documented assessment. Patient and/or family updated on plan of care and expected duration. Pain level reassessed. Patient is alert, oriented x 3, equal unlabored respirations, skin warm/dry/pink. Pain: Pain currently is 6 out of 10 on a pain scale. Vital Signs: 02:50 BP 161 / 99; Pulse 60; Resp 18; Temp 97.3(TE); Pulse Ox 99% on R/A; Pain 10/10; kl 05:47 BP 152 / 98; Pulse 72; Resp 16; Pulse Ox 99% on R/A; ll3 ED Course: 02:22 Patient arrived in ED. bp1 02:52 Triage completed. kl 03:02 Russ Reyes MD is Attending Physician. juli 03:06 Inserted saline lock: 20 gauge in right antecubital area, using aseptic technique. oe Blood collected. 03:41 Patient has correct armband on for positive identification. Bed in low position. Call ll3 light in reach. Side rails up X 1. 04:12 CT Stone Protocol In Process Unspecified. EDMS 05:13 Zachary Shannon MD is Referral Physician. juli 05:43 No provider procedures requiring assistance completed. IV discontinued, intact, ll3 bleeding controlled, No redness/swelling at site. Pressure dressing applied. 05:45 Arm band placed on Patient placed in an exam room, on a stretcher, on pulse oximetry. ll3 Administered Medications: 03:34 Drug: Ketorolac 30 mg Route: IVP; Site: right antecubital; ll3 05:46 Follow up: Response: Marked relief of symptoms ll3 03:34 Drug: Dilaudid (HYDROmorphone) 1 mg Route: IVP; Site: right antecubital; ll3 05:46 Follow up: Response: No adverse reaction ll3 03:34 Drug: Flomax (tamsulosin) 0.4 mg Route: PO; ll3 05:46 Follow up: Response: No adverse reaction ll3 03:34 Drug: Zofran (Ondansetron) 4 mg Route: IVP; Site: right antecubital; ll3 05:46 Follow up: Response: No adverse reaction ll3 03:36 Drug: NS 0.9% 1000 ml Route: IV; Rate: 1 bolus; Site: right antecubital; ll3 05:47 Follow up: Response: No adverse reaction; IV Status: Completed infusion; IV Intake: ll3 1000ml 04:00 Drug: levofloxacin 500 mg Volume: 100 ml; Route: IVPB; Infused Over: 60 mins; Site: ll3 right antecubital; 05:46 Follow up: Response: No adverse reaction; IV Status: Completed infusion; IV Intake: ll3 100ml Medication: 05:45 VIS not applicable for this client. ll3 Intake: 05:46 IV: 100ml; Total: 100ml. ll3 05:47 IV: 1000ml; Total: 1100ml. ll3 Outcome: 05:14 Discharge ordered by MD. bustos 05:45 Discharged to home ambulatory, with family. ll3 05:45 Condition: stable 05:45 Discharge instructions given to patient, family, Instructed on discharge instructions, follow up and referral plans. medication usage, Demonstrated understanding of instructions, follow-up care, medications, Prescriptions given X 4. 05:47 Patient left the ED. ll3 Signatures: Dispatcher [employer] EDAngelika Quintero, Russ Calderon RN, MD MD cha Espinosa, Orlando oe Paniauga, Brittany bp1 Loubet, Lynsea, RN RN ll3
--- NOTE | 2022-03-23 05:15 | EDPHYS ---
Physician Documentation [facility] Name: Cony Michael Age: 46 yrs Sex: Female : 1975 Arrival Date: 03/23/2022 Time: 02:22 Bed 5 Private MD: Russ Avendano HPI: 03/23 03:18 This 46 yrs old Female presents to ER via Ambulatory with complaints of Back juli Pain, Groin Pain, Vomiting. 03:18 The patient presents with pain that is acute, with no known mechanism of injury. The juli symptoms are located in the low back, left low back and left mid back. Onset: The symptoms/episode began/occurred last night. The pain radiates to the left low back and left mid back. Associated signs and symptoms: The patient has no apparent associated signs or symptoms. The problem was sustained from unknown cause. Modifying factors: The patient symptoms are alleviated by nothing, the patient symptoms are aggravated by nothing. The patient has not experienced similar symptoms in the past. 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 - Social history:: Smoking status: Patient denies any tobacco usage or history of. - Family history:: not pertinent. ROS: 03:18 Constitutional: Negative for fever, chills, and weight loss, Eyes: Negative for injury, juli pain, redness, and discharge, ENT: Negative for injury, pain, and discharge, Neck: Negative for injury, pain, and swelling, Cardiovascular: Negative for chest pain, palpitations, and edema, Respiratory: Negative for shortness of breath, cough, wheezing, and pleuritic chest pain, Abdomen/GI: Negative for abdominal pain, nausea, vomiting, diarrhea, and constipation, : Negative for injury, bleeding, discharge, and swelling, MS/Extremity: Negative for injury and deformity, Skin: Negative for injury, rash, and discoloration, Neuro: Negative for headache, weakness, numbness, tingling, and seizure, Psych: Negative for depression, anxiety, suicide ideation, homicidal ideation, and hallucinations, Allergy/Immunology: Negative for hives, rash, and allergies, Endocrine: Negative for neck swelling, polydipsia, polyuria, polyphagia, and marked weight changes, Hematologic/Lymphatic: Negative for swollen nodes, abnormal bleeding, and unusual bruising. 03:18 Back: Positive for flank pain, on the left. Exam: 03:18 Constitutional: This is a well developed, well nourished patient who is awake, alert, juli and in no acute distress. Head/Face: Normocephalic, atraumatic. Eyes: Pupils equal round and reactive to light, extra-ocular motions intact. Lids and lashes normal. Conjunctiva and sclera are non-icteric and not injected. Cornea within normal limits. Periorbital areas with no swelling, redness, or edema. ENT: Nares patent. No nasal discharge, no septal abnormalities noted. Tympanic membranes are normal and external auditory canals are clear. Oropharynx with no redness, swelling, or masses, exudates, or evidence of obstruction, uvula midline. Mucous membranes moist. Neck: Trachea midline, no thyromegaly or masses palpated, and no cervical lymphadenopathy. Supple, full range of motion without nuchal rigidity, or vertebral point tenderness. No Meningismus. Chest/axilla: Normal chest wall appearance and motion. Nontender with no deformity. No lesions are appreciated. Cardiovascular: Regular rate and rhythm with a normal S1 and S2. No gallops, murmurs, or rubs. Normal PMI, no JVD. No pulse deficits. Respiratory: Lungs have equal breath sounds bilaterally, clear to auscultation and percussion. No rales, rhonchi or wheezes noted. No increased work of breathing, no retractions or nasal flaring. Abdomen/GI: Soft, non-tender, with normal bowel sounds. No distension or tympany. No guarding or rebound. No evidence of tenderness throughout. Female : Normal external genitalia. Skin: Warm, dry with normal turgor. Normal color with no rashes, no lesions, and no evidence of cellulitis. MS/ Extremity: Pulses equal, no cyanosis. Neurovascular intact. Full, normal range of motion. Neuro: Awake and alert, GCS 15, oriented to person, place, time, and situation. Cranial nerves II-XII grossly intact. Motor strength 5/5 in all extremities. Sensory grossly intact. Cerebellar exam normal. Normal gait. Psych: Awake, alert, with orientation to person, place and time. Behavior, mood, and affect are within normal limits. 03:18 Back: pain, that is moderate, ROM is normal, normal spinal alignment noted, CVA tenderness, is absent, vertebral tenderness, is not appreciated. Vital Signs: 02:50 BP 161 / 99; Pulse 60; Resp 18; Temp 97.3(TE); Pulse Ox 99% on R/A; Pain 10/10; kl 05:47 BP 152 / 98; Pulse 72; Resp 16; Pulse Ox 99% on R/A; ll3 MDM: 03:[address] [facility] 03:22 Data reviewed: vital signs, nurses notes, lab test result(s), radiologic studies, CT [facility] scan. 03/23 02:57 Order name: CBC with Diff; Complete Time: 04:03 3 03/23 02:57 Order name: CMP; Complete Time: 04:03 [facility] 03/23 02:57 Order name: Lipase; Complete Time: 04:03 3 03/23 03:17 Order name: Urine Culture [facility] 03/23 03:50 Order name: Urine Dipstick-Ancillary; Complete Time: 04:03 EDMS 03/23 02:57 Order name: IV Saline Lock; Complete Time: 03:35 [facility] 03/23 03:22 Order name: CT Stone Protocol [facility] 03/23 02:57 Order name: Labs collected and sent; Complete Time: 03:35 [facility] 03/23 03:17 Order name: Urine Dipstick-Ancillary (obtain specimen); Complete Time: 03:51 [facility] Administered Medications: 03:34 Drug: Ketorolac 30 mg Route: IVP; Site: right antecubital; ll3 05:46 Follow up: Response: Marked relief of symptoms ll3 03:34 Drug: Dilaudid (HYDROmorphone) 1 mg Route: IVP; Site: right antecubital; ll3 05:46 Follow up: Response: No adverse reaction ll3 03:34 Drug: Flomax (tamsulosin) 0.4 mg Route: PO; ll3 05:46 Follow up: Response: No adverse reaction ll3 03:34 Drug: Zofran (Ondansetron) 4 mg Route: IVP; Site: right antecubital; ll3 05:46 Follow up: Response: No adverse reaction [facility] 03:36 Drug: NS 0.9% 1000 ml Route: IV; Rate: 1 bolus; Site: right antecubital; 3 05:47 Follow up: Response: No adverse reaction; IV Status: Completed infusion; IV Intake: ll3 1000ml 04:00 Drug: levofloxacin 500 mg Volume: 100 ml; Route: IVPB; Infused Over: 60 mins; Site: ll3 right antecubital; 05:46 Follow up: Response: No adverse reaction; IV Status: Completed infusion; IV Intake: ll3 100ml Disposition Summary: 03/23/22 05:14 Discharge Ordered Location: Home juli Problem: new juli Symptoms: have improved juli Condition: Stable juli Diagnosis - Hydronephrosis with renal and ureteral calculous obstruction - 4x2x4 mm juli - UTI/ Urinary tract infection, site not specified juli Followup: juli - With: Private Physician - When: 2 - 3 days - Reason: Recheck today's complaints, Continuance of care, Re-evaluation by your physician Followup: juli - With: - When: 2 - 3 days - Reason: Recheck today's complaints, Continuance of care, Re-evaluation by your physician Discharge Instructions: - Discharge Summary Sheet juli - Dysuria juli - Kidney Stones juli - Urinary Tract Infection, Adult juli - Kidney Stones, Ibse-ac-Hirg juli - Urinary Tract Infection, Adult, [id number] juli - Hydronephrosis juli - Dietary Guidelines to Help Prevent Kidney Stones juli Forms: - Medication Reconciliation Form [facility] - Thank You Letter juli - Antibiotic Education juli - Prescription Opioid Use juli - Work release form 3 Prescriptions: - Flomax 0.4 mg Oral capsule - take 1 capsule by ORAL route once daily 1/2 hour following the same meal each [facility] day; 20 capsule; Refills: 0, Product Selection Permitted - Zofran 4 mg Oral Tablet - take 1 tablet by ORAL route every 12 hours As needed; 20 tablet; Refills: 0, [facility] Product Selection Permitted - levofloxacin 500 mg Oral Tablet - take 1 tablet by ORAL route once daily for 7 days; 7 tablet; Refills: 0, [facility] Product Selection Permitted - Tylenol-Codeine #3 300 mg-30 mg Oral - take 2 tablet by ORAL route every 6 hours; 24 tablet; Refills: 0, Product juli Selection Permitted Signatures: Dispatcher [employer] Angelika Ralph, RN Russ Calderon MD MD cha Loubet, Lynsea, RN RN ll3 Corrections: (The following items were deleted from the chart) 03:35 03:17 Urine Test ordered. juli [email or web address] 03:57 03:49 URINE --ANCILLARY+[email or web address].LAB.BRZ ordered. TIMOTHY AGUIRRE
--- NOTE | 2022-03-23 14:03 | RAD REPORT ---
EXAM DESCRIPTION: CT abdomen and pelvis without intravenous contrast CLINICAL HISTORY: 46 years Female Flank pain, kidney stone suspected TECHNIQUE: Axial CT imaging of the abdomen and pelvis was performed without oral or intravenous cont rast. Sagittal and coronal reconstructed images were then performed. The CT study is performed acco rding to ALARA (as low as reasonably achievable) or ALARA/IMAGE GENTLY, with automatic adjustment of mA and/or kV according to patient size. Performed on: 03/23/2022 at 4:02 AM Comparison: CT abdomen and pelvis report from 04/12/2021. The images were unavailable for review. FINDINGS: Lung bases: The lung bases are clear. Liver: The liver is normal in size and configuration. There is a small relatively sharply marginated focal area of decreased attenuation along the peripheral inferior medial aspect of the left hepatic l obe likely representing an incidental cyst or hemangioma. Liver attenuation is within normal limits. Spleen: The spleen is normal in size, configuration and attenuation. No focal splenic abnormalities a re appreciated on this unenhanced scan. Gallbladder and bile duct: The gallbladder is surgically absent. There is no biliary ductal dilatat ion. Pancreas: The pancreas is grossly normal in size and configuration. Adrenal Glands: The adrenal glands are normal in size and configuration. Kidneys: The kidneys are normal in size and configuration. There is mild to moderate left-sided hydro nephrosis and hydroureter with perinephric and periureteral inflammation and edema secondary to a 4 x 2 x 4 mm calcification in the distal left ureter just above the ureterovesical junction. There are p unctate bilateral renal calculi. No additional focal renal abnormalities are identified. Stomach: The stomach is grossly normal. There is no definite hiatal hernia. Bowel: The bowel gas pattern is non specific and non obstructive. Appendix: The appendix is not well visualized and may be surgically absent. Free air: There is no evidence of free air. Free fluid: There is trace ascites in the right retroperitoneal space. Vasculature: The aorta is normal in caliber and contour. The inferior vena cava is grossly unremarkab le. Lymphadenopathy: No pathologic lymphadenopathy is identified. Bladder: The bladder is incompletely distended on this examination. Reproductive: The uterus is surgically absent. Bones: No acute osseous abnormalities are identified. Soft tissues: No acute soft tissue abnormalities are identified. IMPRESSION: 1. Mild to moderate left-sided hydronephrosis and hydroureter with perinephric and per iureteral inflammation and edema secondary to a 4 x 2 x 4 mm calcification in the distal left ureter just above the ureterovesical junction. 2. Punctate bilateral renal calculi. 3. Status post cholecystectomy and hysterectomy and probable appendectomy. 4. Suspect small incidental cyst or hemangioma along the peripheral inferior medial aspect of the l eft hepatic lobe. Electronically signed by: Ayanna Gomez DO 03/23/2022 4:50 AM CDT Due to temporary technical issues with the PACS/Fluency reporting system, reports are being signed by the in house radiologists without review as a courtesy to insure prompt reporting. The interpreting radiologist is fully responsible for the content of the report.
[2022-03-24 13:30] VITALS: BP 161/99; TEMP 97.3; O2SAT 99
== END 2022-03-23 05:47 | disposition home or self-care (01) ==
LOC: ER 02:20
DX: N13.2 Hydronephrosis with renal and ureteral calculous obstruction (principal); N39.0 Urinary tract infection, site not specified; Z88.1 Allergy status to other antibiotic agents
CPT/HCPCS: 87088; 85025; 87086; 36415; 81003; 83690; 80053; 76377; 74176; J1170; J7030 ×2; J2405; 96365; 96366; 96375; 99284